=== PATIENT | female | born 1975 | race African-American/Black ===

== ENCOUNTER 2016-02-28 08:28 | Observation (INO) | payer OTHER ==
[~2016-02-28] VITALS: Ht 162.6 cm; Wt 80.0 kg
[2016-02-28] VITALS (9 sets, daily range): BP systolic 123–166; BP diastolic 72–108; PULSE 59–94; RESP 16–20; TEMP 96.4–98.1; O2SAT 96–100
[~2016-02-28 08:28] MED LIST: ASPI-146 PO; FERR200T PO
[2016-02-28 09:07] LABS: MEAN CORPUSCULAR HGB CONC 29.2 % (32.0-36.0)
[2016-02-28] MEDS ORDERED: ONDANSETRON HCL 4 MG/2 ML VIAL IV SCH (09:15)
[2016-02-28] MEDS ORDERED: KETOROLAC TROMETHAMINE 30 MG/ML (IVP) VIAL IVP SCH ×2 (09:15→12:00)
[2016-02-28] MEDS ORDERED: ceFAZolin 2 GM PREMIX 50 ML IV SCH (09:15)
[2016-02-28] MEDS ORDERED: DIAZEPAM 10 MG TAB PO SCH (09:15)
[2016-02-28 09:23] LABS: AUTOMATED NEUTROPHIL # 3.4 TH/MM3 (1.8-7.7); BASOPHIL % 0.7 % (0.0-2.0); EOSINOPHIL # 0.2 TH/MM3 (0-0.4); HEMATOCRIT 26.6 % (35.0-46.0); LYMPH % 33.4 % (9.0-44.0); MEAN CELL VOLUME 59.3 FL (80.0-100.0); MEAN CORPUSCULAR HEMOGLOBIN 17.3 PG (27.0-34.0); MONO % 5.8 % (0.0-8.0); NEUT % 56.1 % (16.0-70.0); PLATELET COUNT 254 TH/MM3 (150-450); RED BLOOD COUNT 4.49 MIL/MM3 (4.00-5.30); RED CELL DISTRIBUTION WIDTH 22.8 % (11.6-17.2); WHITE BLOOD COUNT 6.1 TH/MM3 (4.0-11.0)
[2016-02-28 09:24] LABS: HEMO FLAGS AUTO DIFF
[2016-02-28 09:35] LABS: APTT (PATIENT) 24.3 SEC (24.3-30.1); PROTHROMBIN TIME - PATIENT 10.5 SEC (9.8-11.6)
[2016-02-28] MEDS: SODIUM CHLOR 0.9% 1000 ML INJ 1,000 ML IV SCH ×3 (09:40→22:26)
[2016-02-28 09:42] LABS: BICARBONATE 24.6 MEQ/L (21.0-32.0); POTASSIUM 4.6 MEQ/L (3.5-5.1)
[2016-02-28 09:54] LABS: ACANTHOCYTES OCC (NORMAL); KERATOCYTES OCC (NORMAL); OVALOCYTES 1+ (NORMAL); PLATELET ESTIMATE SMEAR NORMAL (NORMAL); PLATELET MORPHOLOGY NORMAL (NORMAL); SCAN/DIFF AUTO DIFF CONFIRMED
[2016-02-28] MEDS ORDERED: fentaNYL CITRATE 250 MCG/5 ML AMP ONE (10:06)
[2016-02-28] MEDS ORDERED: MIDAZOLAM HCL 5 MG/5 ML VIAL ONE (10:06)
[2016-02-28] MEDS ORDERED: diphenhydrAMINE HCL 50 MG/ML VIAL IV PRN (11:45)
[2016-02-28] MEDS ORDERED: HYDROmorphone HCL PCA 6 MG/30 ML IV SCH (11:45)
[2016-02-28] MEDS ORDERED: ACETAMINOPHEN 325 MG TAB PO PRN (11:45)
[2016-02-28] MEDS ORDERED: NALOXONE HCL 0.4 MG/ML AMP IV PRN (11:45)
[2016-02-28] MEDS ORDERED: diphenhydrAMINE HCL 25 MG CAP PO PRN (11:45)
--- NOTE | 2016-02-28 11:47 | PD.RAD ---
Post Procedure Progress Note Pre Procedure Diagnosis: (1) Menorrhagia with irregular cycle (2) Fibroid uterus Post Procedure Diagnosis: (1) Menorrhagia with irregular cycle (2) Fibroid uterus Procedure Date: Feb 28, 2016 Supervising Radiologist: Oscar Terrazas Proceduralist/Assist: RT Tri(R) Anesthesia: Local, Conscious Sedation Plan of Activity Patient to Unit: ROPU Patient Condition: Good See PACS Report for procedural detail/treatment Vascular-Arterial Procedure Procedure 1 Procedure(s): Embolization Access Access Site(s): Right Femoral Artery Closure Site(s): Right vascular closure device Findings: enlarged fibroid uterus Treament Area: uterine artery embolization Oscar Terrazas MD Feb 28, 2016 11:47
[2016-02-28] MEDS ORDERED: IODIXANOL 320 MG/ML 50 ML VIAL (for RAD SPEC) I-ARTERIAL ONE (12:04)
[2016-02-28] MEDS ORDERED: GELATIN 12 MM/7 MM FOAM I-ARTERIAL ONE (12:04)
--- NOTE | 2016-02-28 13:08 | RADRPT ---
EXAM DATE/TIME: 02/28/2016 09:23 [place] COMPARISON: No previous studies available for comparison. INDICATIONS : Patient with history of uterine fibroid in need of uterine artery embolization. MEDICAL HISTORY : Stroke 2009, TIA 2012, Anemia, Menorrhagia SURGICAL HISTORY : Tubal ligation, Breast surgery, Right axillary lymph node removal, Tonsillectomy and adenoidectomy ENCOUNTER: Initial ACUITY: > 1 year PAIN SCORE: 0/10 FLUORO TIME: 19.3 minutes ACCESS SITE: Right Femoral artery SEDATION TIME: 60 minutes CONTRAST: 1.) 110 cc Visipaque (iodixanol) MEDICATION(S): 1.) 4 mg midazolam (Versed) IV 2.) 250 mcg fentanyl (Sublimaze) IV Prophylactic antibiotics were administered with appropriate pre-procedure timing. Vancomycin within 2 hrs of procedure, Ancef (or alternative) within 1 hr of procedure. DEVICE(S): 1.) Bilateral uterine artery 355-500 microns PVA 2.) Bilateral uterine artery 12-7mm Gelfoam 3.) Right common femoral artery 6F Starclose PROCEDURE: 1. Continuous pulse oximetry and EKG monitoring for a total of 60 minutes 2. Intravenous conscious sedation 3. Ultrasound guidance for right femoral arterial access 4. Subselective catheterization, left uterine artery 5. Left uterine arteriography 6. Subselective catheterization, right uterine artery 7. Right uterine arteriography 8. Bilateral uterine artery embolization 9. Followup arteriography postembolization, bilateral internal iliac arteries 10. Right femoral sheath arteriography 11. Right femoral arteriotomy closure with Starclose device TECHNIQUE: The risks, benefits and alternatives to uterine artery embolization were explained to the patient in detail, and lay terms and verbal and written informed consent was obtained. The patien t was placed supine on the angiography table. The right groin was prepped in sterile fashion. Full st erile technique was used, including cap, mask, sterile gloves and gown and a large sterile sheet. Gallegos d hygiene and 2% chlorhexidine and/or betadine/alcohol prep was utilized per protocol for cutaneous a ntisepsis. The skin and subcutaneous tissues were infiltrated with lidocaine solution. Under direct u ltrasound guidance, micropuncture access was accomplished and the right common femoral artery and a 4 Khmer vascular sheath was placed. The ultrasound images depicting access guidance were saved and st ored to PACS for permanent record. A 4 Khmer Omni flush catheter was inserted and positioned in the low abdominal aorta. Digital subtra ction pelvic arteriography was performed. The Omni Flush catheter was used to select over the aortic bifurcation and was manipulated down into the contralateral left internal iliac. With the aid of road mapping guidance, an angled Glidewire was manipulated into the left uterine artery. A 4 Khmer Cobra catheter followed without difficulty and was positioned in the inferior horizontal portion of the ut erine artery. Subselective left uterine arteriography was performed. Embolization was accomplished us ing 350-500 PVA particles to complete occlusion of the vessel. Followup arteriography performed in the internal iliac revealed complete occlusion of the uterine artery with good preservation of flow i n the other anterior division branches. Attention was then turned to catheterization of the ipsilateral right internal iliac. Again with the road mapping guidance, the uterine artery was subselectively catheterized and DSA performed. Right ut erine artery embolization was accomplished in a similar fashion and a followup arteriography revealed an excellent result with total occlusion of the vessel and good preservation of flow in other iliac vessels. The right groin sheath was evaluated with arteriography and then the arteriotomy was closed with the Starclose device. The patient tolerated the procedure well and was taken to recovery in stable condit ion. FINDINGS: Classical pelvic arterial anatomy is noted. The iliacs are widely patent bilaterally. Hypogastrics ar e widely patent bilaterally. The uterine arteries are enlarged without clear feeders to the ovaries. CONCLUSION: Uncomplicated bilateral uterine artery embolization for symptomatic fibroids as described in detail antonietta angela. Oscar Terrazas MD on February 28, 2016 at 12:59 Board Certified Radiologist. This report was verified electronically.
[2016-02-28] MEDS: LEVOFLOXACIN 500 MG TAB PO SCH (13:41)
[2016-02-28] MEDS: PCA - TOTAL MG DILAUDID DELIVERED PER SHIFT OTHER SCH ×2 (14:00→22:00)
[2016-02-28] MEDS: KETOROLAC TROMETHAMINE 30 MG/ML (IVP) VIAL IVP SCH ×2 (17:26→22:26)
--- NOTE | 2016-02-28 17:29 | HHI.HP ---
HPI Service CP Hospitalists Primary Care Physician Lulú Farias MD Admission Diagnosis Uterine leiomyomas Chief Complaint: Dysfunctional uterine bleeding Travel History International Travel<30 Days: No Contact w/Intl Traveler <30 Da: No Traveled to Known Affected Are: No History of Present Illness Ms. Davenport is a pleasant 40 y/o AAF with large symptomatic uterine leiomyomas, resulting in severe iron deficiency anemia and hx of cerebrovascular accident in 2011 and 2014 thought to be secondary to thrombocytosis per outpt records. Pt was admitted to [facility] on 02/28/16 for uterine artery embolization with IR. Pt had previously been followed by Dr. Vyas and had completed her 6 month treatment with Lupron injections, but never went back to Dr. Vyas for the uterine artery embolization vs hysterectomy. Pts labs as an outpt noted Hgb 7.1/Hct 25.7 in September 2015 and repeat labs today at admission noted Hgb 7.8/Hct 26.5 and MCV 59.3. She reports that she is having abdominal pain since the procedure but has METAL MOLDER ordered. Pt has Jones cath in place. Review of Systems Constitutional: DENIES: Fever, Chills Eyes: DENIES: Vision loss Ears, nose, mouth, throat: DENIES: Hearing loss Respiratory: DENIES: Cough, Shortness of breath Cardiovascular: DENIES: Chest pain, Palpitations, Lower Extremity Edema Gastrointestinal: DENIES: Abdominal pain, Diarrhea, Nausea, Vomiting Genitourinary: COMPLAINS OF: Abnormal vaginal bleeding Musculoskeletal: DENIES: Back pain, Neck pain Integumentary: DENIES: Rash Neurologic: DENIES: Headache Past Family Social History Past Medical History Cerebral thrombosis with infarction in 2011 and in 2014 felt to be related to severe thrombocytosis and profound anemia secondary to menorrhagia. Symptomatic uterine leiomyomas Iron deficiency anemia GERD Hyperlipidemia Past Surgical History Oral surgery Tubal ligation Reported Medications Ecotrin Regular Strength 325 Mg PO DAILY Allergies: Coded Allergies: Morphine (Verified Allergy, Unknown, 02/28/16) PT DENIES ON THIS ADMISSION Penicillin (Verified Allergy, Unknown, 02/28/16) PT DENIES ON THIS ADMISSION Family History Mother with hx of CVA Social History Hx of tobacco use, smoked 1 pack every 2 days x 10 years, quit in 2014 Denies any alcohol use Hx of marijuana use Physical Exam Vital Signs Vital Signs Date Time Temp Pulse Resp B/P Pulse Ox O2 Delivery O2 Flow Rate FiO2 02/28/16 14:05 66 16 158/91 99 02/28/16 14:00 16 02/28/16 13:35 62 16 161/94 98 02/28/16 13:06 16 02/28/16 13:05 70 16 151/95 98 02/28/16 12:35 70 16 165/99 98 02/28/16 12:20 72 16 166/108 98 02/28/16 12:05 80 16 162/98 98 02/28/16 11:50 97.5 93 16 150/101 96 02/28/16 08:54 Room Air 02/28/16 08:54 98.1 94 20 123/87 98 Physical Exam GENERAL: This is a well-nourished, well-developed patient, in no apparent distress. HEENT: Atraumatic. Normocephalic. No temporal or scalp tenderness.No scleral icterus. No injection or drainage. Airway patent. NECK: Trachea midline, supple, nontender. CARDIO: Regular. RESP: CTA bilaterally. No wheezes, rales, or rhonchi. ABD: +BS, soft mildly distended, lower abd tenderness EXT: Extremities without clubbing, cyanosis, or edema. NEURO: Awake and alert. Motor and sensory grossly within normal limits. Normal speech. Laboratory Laboratory Tests Test 02/28/16 09:06 White Blood Count 6.1 Red Blood Count 4.49 Hemoglobin 7.8 Hematocrit 26.6 Mean Corpuscular Volume 59.3 Mean Corpuscular Hemoglobin 17.3 Mean Corpuscular Hemoglobin 29.2 Concent Red Cell Distribution Width 22.8 Platelet Count 254 Mean Platelet Volume 8.5 Neutrophils (%) (Auto) 56.1 Lymphocytes (%) (Auto) 33.4 Monocytes (%) (Auto) 5.8 Eosinophils (%) (Auto) 4.0 Basophils (%) (Auto) 0.7 Neutrophils # (Auto) 3.4 Lymphocytes # (Auto) 2.0 Monocytes # (Auto) 0.4 Eosinophils # (Auto) 0.2 Basophils # (Auto) 0.0 CBC Comment AUTO DIFF Differential Comment AUTO DIFF CONFIRMED Platelet Estimate NORMAL Platelet Morphology Comment NORMAL Ovalocytes 1+ Acanthocytes OCC Keratocytes OCC Prothrombin Time 10.5 Prothromb Time International 1.0 Ratio Activated Partial 24.3 Thromboplast Time Sodium Level 139 Potassium Level 4.6 Chloride Level 107 Carbon Dioxide Level 24.6 Anion Gap 7 Blood Urea Nitrogen 7 Creatinine 0.71 Estimat Glomerular Filtration 110 Rate Random Glucose 86 Calcium Level 8.5 Result Diagram: 02/28/16 0906 02/28/16 0906 Imaging Last Impressions Embolization, Transcatheter 02/28/16 0000 Signed Impressions: Service Date/Time: Sunday, February 28, 2016 09:23 - CONCLUSION: Uncomplicated bilateral uterine artery embolization for symptomatic fibroids as described in detail above. Oscar Terrazas MD Septic Shock Reassessment Heart: Regular rate and rhythm Lungs: Clear Skin: Warm Peripheral Pulses: Bounding Right Radial Bounding Left Radial Bounding Right Popliteal Bounding Left Popliteal Bounding Right Dorsalis Pedis Bounding Left Dorsalis Pedis Bounding Right Posterior Tibial Bounding Left Posterior Tibial Capillary Refill: <2 seconds Assessment and Plan Problem List: (1) Fibroid uterus Status: Chronic Plan: - Pt s/p uterine artery embolization on 02/28/16 with IR for dysfunctional uterine bleeding secondary to uterine fibroid - Post-op pain control per IR - Jones cath to be removed in AM - Monitor H/H - IVF - Supportive care - Anticipate discharge to home tomorrow (2) Menorrhagia with irregular cycle Status: Chronic Plan: - See above (3) Chronic anemia Status: Chronic Plan: - See above. - Hgb 7.8 with MCV 56 - Pt has had longstanding issues with menorrhagia and iron deficiency anemia - Cont. iron supplements. (4) History of CVA (cerebrovascular accident) Status: Resolved Plan: - Pt with hx of CVA in 2011 and 2014 - No residual effects from the strokes per the pt Assessment and Plan Patient examined. Assessment and plan formulated with Natalee Graves PA-C. I agree with the above. uterine artery ablation by IR for dysfunctional uterine bleeding/anemia from fibroid. d/c jones and advance diet and activity. d/c tomorrow if stable. Natalee Graves Feb 28, 2016 17:29 Rivas Saldaña MD Feb 28, 2016 20:29
[2016-02-28] MEDS: ONDANSETRON HCL 4 MG/2 ML VIAL IV PRN (19:26)
[2016-02-28 21:15] LABS: MEAN CORPUSCULAR HGB CONC 28.8 % (32.0-36.0)
[2016-02-29] VITALS: BP 128/77; PULSE 74; RESP 16; TEMP 98.2; O2SAT 100
[2016-02-29] MEDS: KETOROLAC TROMETHAMINE 30 MG/ML (IVP) VIAL IVP SCH ×4 (04:36→21:35)
[2016-02-29] MEDS: ONDANSETRON HCL 4 MG/2 ML VIAL IV PRN ×2 (04:43→10:49)
[2016-02-29] MEDS: PCA - TOTAL MG DILAUDID DELIVERED PER SHIFT OTHER SCH (06:00)
[2016-02-29] MEDS ORDERED: CALCIUM CARBONATE 500 MG CHEWABLE TAB PO PRN (06:15)
[2016-02-29 07:12] LABS: AUTOMATED NEUTROPHIL # 7.7 TH/MM3 (1.8-7.7); BASOPHIL # 0.1 TH/MM3 (0-0.2); BASOPHIL % 0.6 % (0.0-2.0); EOSINOPHIL # 0.1 TH/MM3 (0-0.4); EOSINOPHIL % 0.8 % (0.0-4.0); HEMATOCRIT 24.7 % (35.0-46.0); LYMPH % 18.6 % (9.0-44.0); MONO % 6.7 % (0.0-8.0); NEUT % 73.3 % (16.0-70.0); PLATELET COUNT 190 TH/MM3 (150-450); RED BLOOD COUNT 4.19 MIL/MM3 (4.00-5.30); RED CELL DISTRIBUTION WIDTH 22.7 % (11.6-17.2); WHITE BLOOD COUNT 10.6 TH/MM3 (4.0-11.0)
[2016-02-29 07:21] VITALS: BP 137/68; PULSE 68; RESP 20; TEMP 98.3; O2SAT 100
[2016-02-29 07:41] LABS: HEMO FLAGS AUTO DIFF
[2016-02-29] MEDS ORDERED: ACETAMINOPHEN/HYDROcodone 325 MG/5 MG TAB PO PRN (08:00)
--- NOTE | 2016-02-29 09:41 | HHI.DCPOC ---
Discharge Care Plan Diagnosis: (1) Menorrhagia with irregular cycle (2) Chronic anemia (3) Fibroid uterus Goals to Promote Your Health * To prevent worsening of your condition and complications * To maintain your health at the optimal level Directions to Meet Your Goals Take your medications as prescribed Follow your dietary instruction Follow activity as directed Keep your appointments as scheduled Take your immunizations and boosters as scheduled If your symptoms worsen call your PCP, if no PCP go to Urgent Care Center or Emergency Room Smoking is Dangerous to Your Health. Avoid second hand smoke Call the 24-hour hour crisis hotline for domestic abuse at Rivas Saldaña MD Feb 29, 2016 09:41
[2016-02-29] MEDS ORDERED: HYDR-3288 PO (09:42)
--- NOTE | 2016-02-29 09:44 | HHI.PR ---
Subjective Remarks doing well. sharee food Objective Vitals heent neg heart reg lung cta abd s/lower abdomen tender ext no edema Vital Signs Date Time Temp Pulse Resp B/P Pulse Ox O2 Delivery O2 Flow Rate FiO2 02/29/16 07:21 98.3 68 20 137/68 100 02/29/16 06:00 18 02/29/16 00:00 98.2 74 16 128/77 100 02/28/16 23:26 16 02/28/16 22:00 18 02/28/16 20:00 96.4 59 16 131/72 100 02/28/16 17:52 Nasal Cannula 2.00 02/28/16 14:05 66 16 158/91 99 02/28/16 14:00 16 02/28/16 13:35 62 16 161/94 98 02/28/16 13:06 16 02/28/16 13:05 70 16 151/95 98 02/28/16 12:35 70 16 165/99 98 02/28/16 12:20 72 16 166/108 98 02/28/16 12:05 80 16 162/98 98 02/28/16 11:50 97.5 93 16 150/101 96 02/28/16 02/28/16 02/29/16 15:00 23:00 07:00 Intake Total 1300 ml 880 ml Output Total 1000 ml 950 ml Balance 300 ml -70 ml Intake Oral 720 ml 480 ml IV Total 580 ml 400 ml Output Urine Total 1000 ml 950 ml # Bowel Movements 0 Result Diagram: 02/29/16 0615 02/28/16 0906 Imaging Last Impressions Embolization, Transcatheter 02/28/16 0000 Signed Impressions: Service Date/Time: Sunday, February 28, 2016 09:23 - CONCLUSION: Uncomplicated bilateral uterine artery embolization for symptomatic fibroids as described in detail above. Oscar Terrazas MD A/P Problem List: (1) Fibroid uterus Status: Chronic Plan: - Pt s/p uterine artery embolization on 02/28/16 with IR for dysfunctional uterine bleeding secondary to uterine fibroid -d/c jones, ivf, senior gis analyst -ambulate -advance diet d/c later today if stable. prn norco script written. (2) Menorrhagia with irregular cycle Status: Chronic Plan: - See above (3) Chronic anemia Status: Chronic Plan: - See above. - Hgb 7.8 with MCV 56 - Pt has had longstanding issues with menorrhagia and iron deficiency anemia - Cont. iron supplements. (4) History of CVA (cerebrovascular accident) Status: Resolved Plan: - Pt with hx of CVA in 2011 and 2014 - No residual effects from the strokes per the pt Rivas Saldaña MD Feb 29, 2016 09:44
[2016-02-29 10:14] LABS: ACANTHOCYTES OCC (NORMAL)
[2016-02-29 10:15] LABS: KERATOCYTES OCC (NORMAL); OVALOCYTES 1+ (NORMAL); SCAN/DIFF AUTO DIFF CONFIRMED
[2016-02-29 12:00] VITALS: BP 133/73; PULSE 79; RESP 20; TEMP 98.6; O2SAT 100
--- NOTE | 2016-02-29 12:02 | PD.RAD ---
Radiology Note Pt resting comfortably. continued nausea. Pain mild. Has ambulated and voided without issues AF. VSS Abd soft, right groin benign with nl pulses Imp: stable s/p UFE. pt should be OK to D/C if able to take PO. Prescriptions written Oscar Terrazas MD Feb 29, 2016 12:02
[2016-02-29] MEDS: LEVOFLOXACIN 500 MG TAB PO SCH (13:44)
[2016-02-29] MEDS ORDERED: ONDANSETRON HCL 4 MG/2 ML VIAL IV PUSH ONE (13:45)
[2016-02-29] MEDS ORDERED: PROMETHAZINE HCL 25 MG SUPP RECTAL PRN (13:45)
[2016-02-29] MEDS: ACETAMINOPHEN/HYDROcodone 325 MG/5 MG TAB PO PRN (14:58)
[2016-02-29 16:00] VITALS: BP 125/65; PULSE 82; RESP 20; TEMP 98.5; O2SAT 100
[2016-02-29] MEDS ORDERED: ONDANSETRON HCL 4 MG/2 ML VIAL IV PRN (17:00)
[2016-02-29] MEDS ORDERED: PANTOPRAZOLE SODIUM 40 MG VIAL IV PUSH ONE (19:45)
[2016-02-29] MEDS ORDERED: SIMETHICONE 125 MG CHEWABLE TAB PO ONE (19:45)
[2016-02-29 20:00] VITALS: BP 139/81; PULSE 75; RESP 18; TEMP 98.3; O2SAT 99
[2016-02-29] MEDS: SIMETHICONE 125 MG CHEWABLE TAB PO SCH (21:00)
[2016-03-01] VITALS: BP 137/73; PULSE 80; RESP 18; TEMP 98.7; O2SAT 97
[2016-03-01] MEDS: KETOROLAC TROMETHAMINE 30 MG/ML (IVP) VIAL IVP SCH ×2 (03:02→10:00)
[2016-03-01 04:00] VITALS: BP 143/73; PULSE 79; RESP 16; TEMP 98.7; O2SAT 100
[2016-03-01] MEDS: SIMETHICONE 125 MG CHEWABLE TAB PO SCH (05:49)
[2016-03-01 08:00] VITALS: BP 141/80; PULSE 80; RESP 20; TEMP 98.5; O2SAT 100
[2016-03-01] MEDS: ACETAMINOPHEN/HYDROcodone 325 MG/5 MG TAB PO PRN (08:01)
[2016-03-01] MEDS ORDERED: FERR325T PO (09:18)
== END 2016-03-01 11:36 | disposition home or self-care (01) ==
LOC: HROP 08:28 → HRIP 08:29 → HOCA 11:15 → HROP 14:51
PROVIDERS: ADMIT Obstetrics & Gynecology; ATTEND Obstetrics & Gynecology
DX: D25.9 Leiomyoma of uterus, unspecified (principal); N92.0 Excessive and frequent menstruation with regular cycle; D50.9 Iron deficiency anemia, unspecified; E78.5 Hyperlipidemia, unspecified; K21.9 Gastro-esophageal reflux disease without esophagitis; Z86.73 Personal history of transient ischemic attack (TIA), and cerebral infarction without residual deficits; Z87.891 Personal history of nicotine dependence
CPT/HCPCS: 36247; 37243; 76937; 80048; 85025; 85610; 85730; 99152; 99153; C1760; C1769; C1887; C1894; C9113; G0269; G0378; J0690; J1170; J1885; J2250; J2405; J3010; J7030; Q9967